=== PATIENT | male | born 1965 | race Caucasian/White ===

== ENCOUNTER → 2018-05-11 | Outpatient (REF) ==
--- NOTE | 2018-05-11 10:39 | RADIOLOGY IMAGING REPORT ---
FACILITY: [facility] PATIENT NAME: Guido Bateman : 1965 MR: [id number] V: [id number] EXAM DATE: ORDERING PHYSICIAN: RAZ RAI TECHNOLOGIST: Location: [facility] [place] Patient: Guido Bateman : 1965 Visit/Account:[id number] Date of Sevice: 05/11/2018 CHEST PA AND LAT Indication: Health exam, no complaints. Comparison: Chest x-ray 06/23/2016. Findings: Lungs: Clear. Mediastinum/pulmonary vasculature: Heart size and pulmonary vasculature are normal. Bones/soft tissues: Normal. IMPRESSION: Clear lungs. Report Dictated By: José Antonio Allan at 05/11/2018 10:33 AM Report E-Signed By: José Antonio Allan at 05/11/2018 10:34 AM WSN:[email or web address]
== END ==
LOC: RAD 09:21
PROVIDERS: ATTEND Physician Assistant
DX: Z02.89 Encounter for other administrative examinations (principal)
CPT/HCPCS: 71046

== ENCOUNTER → 2018-06-15 | Day surgery (SDC) | payer OTHER ==
[~2018-06-15] VITALS: Ht 177.8 cm; Wt 88.0 kg
[2018-06-15] VITALS (8 sets, daily range): BP systolic 100–122; BP diastolic 70–88
[~2018-06-15] MED LIST: LIDOCAINE MPF 1% 5 ML VIAL ONE; LIDOCAINE/SOD BICARB 8.4% SYR ID ONE; NORMOSOL R SOLN(*) 1000 ML BAG 1,000 ML IV PRN; PROPOFOL EMUL(*) 10MG/ML 20 ML 20 ML ONE
--- NOTE | 2018-06-15 12:44 | NUR ---
1244- PT BROUGHT TO STEP DOWN BAY 1, PT IN LL POSITION, PT UNRESPONSIVE AT THIS TIME, SLEEPING WITH OCCASIONAL SNORING RESPIRATIONS, PT ON 8LPM VIA OXY MASK, MAINTAINING SATS, RESPIRATIONS AND AIRWAY, WILL CONTINUE TO MONITOR, VSS, SBAR REPORT FROM Roberto MCMAHON RN AND DR. CONTRERAS 1246- DECREASED O2 TO 4LPM VIA OXY MASK, PT REMAINS SLEEPING IN LL POSITION
--- NOTE | 2018-06-15 12:54 | NUR ---
1254- JANETTE AT BEDSIDE, PT REMAINS SLEEPING
--- NOTE | 2018-06-15 13:07 | NUR ---
1307- TITRATED O2 TO 2LPM VIA OXY MASK WHILE PT SLEEPING, AT BEDSIDE
--- NOTE | 2018-06-15 13:16 | NUR ---
1316- PT AWAKE, REMAINS DROWSY, RESPONDS TO VERBAL STIMULI, VSS, PT PLACED ON RA
--- NOTE | 2018-06-15 13:26 | NUR ---
1326- PT MORE AWAKE, TOLERATING ICE WATER
--- NOTE | 2018-06-15 13:36 | NUR ---
1336- REVIEWED D/C INSTRUCTIONS WITH PT
--- NOTE | 2018-06-15 13:52 | NUR ---
1352- ORTHO VSS 1357- PT UP TO RESTROOM
--- NOTE | 2018-06-15 14:03 | NUR ---
1403- PT DRESSED, VOID X 1, D/C IV WITH CATH INTACT, PRESSURE DRESSING APPLIED WITH GAUZE AND COBAND PER Mkiey PARRISH RN 1406- PT AMBULATORY TO [facility], ACCOMPANIED BY JANETTE AND Mikey PARRISH RN
== END ==
LOC: OR 02:09
PROVIDERS: ATTEND Family Medicine
DX: Z12.11 Encounter for screening for malignant neoplasm of colon (principal)
CPT/HCPCS: 00812; 45378; J2001; J2704